=== PATIENT | female | born 1950 | race American Indian/Alaskan Native ===

== ENCOUNTER 2017-05-27 10:56 | Observation (INO) | payer MEDICARE ==
--- NOTE | 2017-05-23 10:18 | Anesthesia Consultation ---
Anesthesia Consult and Med Hx Date of service: 05/27/17 - Airway Anesthetic Teeth Evaluation: Good ROM Head & Neck: Adequate (MILDLY DECREASED) Mental/Hyoid Distance: Adequate Mallampati Class: Class II Intubation Access Assessment: Probably Good - Pulmonary Exam CTA: Yes - Cardiac Exam Cardiac Exam: RRR - Pre-Operative Health Status ASA Pre-Surgery Classification: ASA3 Proposed Anesthetic Plan: General - Pulmonary Hx Smoking: No Hx Asthma: No COPD: No Hx Pneumonia: No Hx Sleep Apnea: No (JAIMEE PRE SCREEN HIGH RISK) - Cardiovascular System Hx Hypertension: Yes (X 25 YRS) Hx Heart Attack/AMI: Yes (1996, heart cath negative in 1996) - Central Nervous System Hx Neuromuscular Disorder: Yes (NECK PAIN, RIGHT ARM NUMBNESS/TINGLING/WEAKNESS) Hx Seizures: No CVA: Yes ( 2013, CAUSED PROBLEMS TALKING, TREMORS) Hx Psychiatric Problems: Yes (ANXIETY, DEPRESSION) - Endocrine Hx Renal Disease: No (ARF IN 2007) Hx End Stage Renal Disease: No Hx Insulin Dependent Diabetes: Yes - Other Systems Hx Cancer: No Hx Obesity: No - Additional Comments Anesthesia Medical History Comments: CLEARANCE PENDING. PATIENT FORMER OR NURSE HERE AT [facility]
[~2017-05-27 10:56] MED LIST: BACITRACIN IR ONE; BACITRACIN ONE; GELFOAM TP ONE; MARCAINE 0.5% 0 ML INFILTRATI ONE; NACL 0.9% 1000 ML 1,000 ML IV SCH; NACL 0.9% 250ML 250 ML ONE; NACL 0.9% 250ML IV ONE; NACL 0.9% IR ONE; NACL P/F VIAL (10 ML) 10 ML ONE; NACL P/F VIAL (10 ML) IV ONE; NEURONTIN PO NR; PEPCID PO NR; SUBLIMAZE ONE; THROMBIN (BOVINE) TP ONE; VERSED IV NR; XYLOCAINE 1%/ EPI 1:100,000 INFILTRATI ONE
[2017-05-27] MEDS ORDERED: ULTIVA 4 MG in NACL 0.9% 80 ML IV ONE (12:00)
[2017-05-27] MEDS ORDERED: SUBLIMAZE ONE (12:09)
[2017-05-27] MEDS ORDERED: DIPRIVAN 10 MG/ML 1,000 MG/100 ML BOTTLE IV ONE (12:15)
[2017-05-27] MEDS ORDERED: XYLOCAINE MPF 2% ONE (12:25)
[2017-05-27] MEDS ORDERED: QUELICIN ONE (12:25)
[2017-05-27] MEDS ORDERED: ZEMURON IV ONE (12:26)
[2017-05-27] MEDS ORDERED: CALCIUM CHLORIDE IV ONE (12:38)
[2017-05-27] MEDS ORDERED: THROMBIN (BOVINE) TP ONE ×2 (12:38→14:25)
--- NOTE | 2017-05-27 12:43 | Anesthesia Day of Surgery ---
Anesthesia Day of Surgery - Day of Surgery Patient Examined: Yes Patient H&P Reviewed: Yes Patient is NPO: Yes Beta Blockers: Yes
[2017-05-27] MEDS ORDERED: ZOFRAN IV NR (13:00)
[2017-05-27] MEDS ORDERED: VANCOMYCIN/NS 1 GM/250 ML 1 GM/250 ML BAG IV NR (13:00)
[2017-05-27] MEDS ORDERED: TRANSDERM-SCOP TD NR (13:00)
[2017-05-27] MEDS ORDERED: NACL P/F VIAL (10 ML) IV ONE (13:41)
[2017-05-27] MEDS ORDERED: XYLOCAINE 1%/ EPI 1:100,000 INFILTRATI ONE (13:57)
[2017-05-27] MEDS ORDERED: NACL 0.9% 250ML IV ONE (14:08)
[2017-05-27] MEDS ORDERED: GELFOAM TP ONE (14:25)
[2017-05-27] MEDS ORDERED: BACITRACIN IR ONE (14:27)
[2017-05-27] MEDS ORDERED: NACL 0.9% IR ONE (14:27)
[2017-05-27] MEDS ORDERED: NACL 0.9% 100 ML ONE (14:52)
[2017-05-27] MEDS ORDERED: ROBINUL ONE (14:52)
[2017-05-27] MEDS ORDERED: DECADRON ONE (14:52)
[2017-05-27] MEDS ORDERED: ZOFRAN ONE (14:52)
[2017-05-27] MEDS ORDERED: NEO SYNEPHRINE ONE (14:52)
--- NOTE | 2017-05-27 15:27 | Post Anesthesia Evaluation ---
- Post Anesthesia Evaluation Patient Participated: Yes Airway Patent: Yes Stable Respiratory Function: Yes Nausea/Vomiting: No Temp > 96.8F: Yes Pain Manageable: Yes Adequeate Hydration: Yes Anesthesia Complications: No Block Receding Appropriately: Not Applicable Patient on Ventilator: No
[2017-05-27] MEDS ORDERED: TORADOL IV PRN (15:31)
[2017-05-27] MEDS ORDERED: ZOFRAN IV PRN ×2 (15:31→18:09)
--- NOTE | 2017-05-27 15:34 | Operative Report ---
Operative Report Operative Report: DATE OF PROCEDURE: 05/27/2017 PREOPERATIVE DIAGNOSIS: Cervical spondylosis with radiculopathy POSTOPERATIVE DIAGNOSIS: Same OPERATIVE PROCEDURE: 1. Anterior cervical arthrodesis C5 6 2. Interbody biomechanical graft placement C5 6 SURGEON: Alan Ferro MD CATHETER BUILDER: Luiza BRUNNER ANESTHESIA: General endotracheal anesthesia EBL: Minimal INDICATIONS FOR PROCEDURE: 66-year-old female with a chief complaint of persistent right upper extremity pain numbness and weakness. Symptoms has been present for over 6 months without response to physical therapy epidural injections or pain management. She presents with the right brachial radialis weakness and sensory changes in that distribution. FINDINGS: Large osteophyte at C5 6 with compression of exiting nerve root. PROCEDURE: The patient was brought to the operating room and placed on the operating table in the supine position. The patient underwent general endotracheal anesthesia without complication. After all lines were placed including monitoring the right neck was prepped and draped in a sterile fashion. After an appropriate time out was taken the area of intended incision was infiltrated with 1% lidocaine with epinephrine. The skin was opened using a 10 blade and carried down to the platysma. The platysma was divided sharply and the anterior cervical strap muscles were dissected bluntly. The anterior cervical spine was approached and a self-retaining retractor was placed under the longus colli muscles. The microscope was brought into the field and the discectomy was begun by making an incision in the disc space of C56. The anterior aspect of the C56 disc was removed using a combination of curettes and pituitary rongeurs. The posterior aspect of the disc and osteophyte was removed using a high-speed drill and Kerrison rongeurs. The posterior longitudinal ligament was incised and the thecal sac decompressed. Bilateral foraminotomies were performed and the neural foramen were checked to ensure no remaining disc or osteophyte was present. Hemostasis was obtained and the endplates were prepared for fusion by removing the remainder of the cartilaginous portion. Biomechanical grafts were then sized packed with bone growth stimulator. The graft then placed in the C5 6 interspace and secured using peek graft provided by R. Hemostasis was obtained and the platysma was reapproximated using 3-0 Vicryl and finally 4-0 Monocryl for the skin. The lap sponge and needle count was correct at the end of the procedure, the patient tolerated the procedure well and was taken to the recovery room extubated and in good condition.
[2017-05-27] MEDS ORDERED: TORADOL ONE (15:49)
[2017-05-27] MEDS: DILAUDID IV PRN ×5 (15:50→23:18)
[2017-05-27] MEDS ORDERED: DILAUDID ONE ×2 (15:53→16:44)
--- NOTE | 2017-05-27 16:08 | XRay Report ---
Lateral view of the cervical spine in the OR. History: Preop localization. Findings: A linear metallic localizer is seen at the C4-5 level.
--- NOTE | 2017-05-27 16:10 | XRay Report ---
AP and lateral view of the cervical spine. History: Postop evaluation. Findings: Anterior cervical fusion has been performed at C5-6. Position of the disc spacer and anterior components is normal. No radiographic signs of complications.
[2017-05-27] MEDS ORDERED: BENADRYL PO PRN (18:09)
[2017-05-27] MEDS ORDERED: D50W (25GM) Syringe IV PRN (18:09)
[2017-05-27] MEDS ORDERED: DESYREL PO PRN (18:09)
[2017-05-27] MEDS ORDERED: CATAPRES PO PRN (18:09)
[2017-05-27] MEDS ORDERED: FLEXERIL PO PRN (18:09)
[2017-05-27] MEDS ORDERED: NARCAN 0.4 MG/1 ML IV PRN (18:09)
[2017-05-27] MEDS ORDERED: XANAX PO PRN (18:09)
[2017-05-27] MEDS ORDERED: TYLENOL PO PRN (18:09)
[2017-05-27] MEDS ORDERED: CEPACOL X STRENGTH MM PRN (18:09)
[2017-05-27] MEDS ORDERED: MORPHINE IV PRN (18:09)
[2017-05-27] MEDS ORDERED: AMBIEN PO PRN (18:09)
[2017-05-27] MEDS ORDERED: REGLAN IV PRN (18:32)
[2017-05-27] MEDS ORDERED: NACL 0.9% 1000 ML 1,000 ML IV SCH (19:00)
[2017-05-27] MEDS ORDERED: LASIX PO SCH (20:00)
[2017-05-27] MEDS ORDERED: INSULIN LISPRO 16 UNIT SQ SCH (20:00)
[2017-05-27] MEDS ORDERED: VANCOMYCIN/NS 1 GM/250 ML 1 GM/250 ML BAG IV SCH (21:00)
[2017-05-27] MEDS ORDERED: LEVEMIR SUB-Q SCH (22:00)
[2017-05-27] MEDS ORDERED: NON-FORMULARY (Insulin Glargine,Hum.Rec.Anlog [Lantus Solostar] 20 UNIT) SQ SCH (22:00)
[2017-05-27] MEDS: COLACE PO SCH (22:53)
[2017-05-27] MEDS: PEPCID PO SCH (22:54)
[2017-05-27] MEDS: SENOKOT PO SCH (22:54)
[2017-05-27] MEDS: NOVOLOG SUB-Q SCH (23:00)
[2017-05-27] MEDS: APRESOLINE PO SCH (23:05)
[2017-05-28] MEDS: DILAUDID IV PRN (03:47)
--- NOTE | 2017-05-28 06:11 | Admit Criteria Form ---
Admission Criteria Documentation: AMBULATORY SURGERY EXCEPTION CRITERIA Ambulatory Surgery Exception Criteria ( Place 'X' for any and all applicable criteria): Surgery or procedure performed on ambulatory basis may require inpatient stay for[A] ANY ONE of the following(1)(2)(3)(4)(5)(6)(7)(8)(9): [X] I. A preoperative situation, condition, or finding that warrants inpatient stay as indicated by ANY ONE of the following: [] a) Inpatient care needed because of severity of a disease or condition rather than the surgery (eg, severe cardiac or respiratory disease, severe infection) (15) (16 ) (17) (18) [] b) Emergent procedure (eg, angioplasty for acute ischemia)(19) [] c) Complex surgical approach or situation as indicated by ANY ONE of the following(3): [] i) Open approach needed instead of usual endoscopic, transcatheter, or other less invasive procedure [] ii) Difficult approach because of previous operation [] iii) Airway monitoring required after open neck procedures(20)(21) [] iv) Large mass requiring unusually extensive dissection [] v) Additional complicating feature requiring inpatient care (eg, drain management)(22(23): [X] d) Major surgery in a pt with high anesthetic risk as indicated by ANY ONE of the following (2)(3)(5)(7)(8): [X] i) ASA risk class III or higher (severe systemic disease impairing function) [D] [] ii) Advanced age (eg, older than 85 years)(14)(24) [] iii) Symptomatic heart failure(25) [] iv) Symptomatic asthma or COPD(8)(21) [] v) Morbid obesity with hemodynamic or respiratory problems(20)( 21)(26)(27) [] vi) Obstructive sleep apnea(20)(21) [] vii) Former premature infants who are younger than 60 weeks [] viii) High risk for severe postoperative abnormalities (eg, severe postoperative hypocalcemia after parathyroidectomy for severe hyperparathyroidism)(27)( 28) [] ix) Unstable angina(25) [] e) Drug-related risk requiring inpatient stay as indicated by ANY ONE of the following(5)(10)(14)(32)(33) [] i) Procedure requires discontinuing drugs or other therapy (eg , antiarrhythmic medication, antiseizure medication), which necessitates inpatient observation or treatment.(18)(31) [] ii) Major surgery and high risk drug use as indicated by ANY ONE of the following: [] 1) Active abuse of cocaine or similar drug [] 2) Monoamine oxidase inhibitor use [] 3) Other drug identified as posing risk [] f) Inadequate outpatient care situation as indicated by ANY ONE of the following(5)(10)(14)(32)(33) [] i) Patient lives remote from medical facility and procedure has urgent complication potential, and temporary nearby residence cannot be arranged [] ii) Patient will have postprocedure incapacitation and inadequate assistance at home, or alternative level of care cannot be arranged. [] iii) Patient will have long general anesthesia or procedure side effect resolution time, and competent person to stay with patient on first postoperative night at home or alternative level of care cannot be arranged. []iv) Other inadequate outpatient situation that cannot be handled by other means [] II. A perioperative event, condition, or finding that warrants inpatient stay as indicated by ANY ONE of the following (1)(2)(3): [] a) Inadequate physiologic recovery: cardiovascular, respiratory, or hemodynamic status not normal or near preoperative baseline(18) [] b) Hemodynamic instability [] c) Patient not alert with near normal or baseline mental status [] d) Temperature not normal or as expected and not appropriate for outpatient treatment of condition [] e) Ambulatory or appropriate activity level status not yet achieved post procedure [E](34)(35)(36) [] f) Operative site not appropriate (eg, unexpected or excessive drainage or bleeding) [] g) Postoperative effects not resolved or adequately managed (eg, significant pain or vomiting not appropriate for outpatient or next level of care)(10)(12) [] h) Complicating features requiring inpatient care as indicated by ANY ONE of the following(37): [] i) Severe complications of procedure (eg, bowel injury, airway compromise, vascular injury,severe hemorrhage) [] ii) Extensive (eg, dissection far beyond usual scope of procedure ) or prolonged (eg, 120 minutes beyond usual) surgery needed requiring inpatient postoperative care [] iii) Conversion to an open or complex procedure that requires inpatient care (eg, open vs laparoscopic cholecystectomy, abdominal vs vaginal hysterectomy)(38) [] iv) Comorbid condition or test result identified during or post procedure that requires inpatient care (7) [] v) Malignant hyperthermia(30) [] vi) Other complicating feature requiring inpatient care(22)(23) Inpatient stay may be needed until ALL of the following are present (1)(2)(3)(4) (5)(6)(10)(14)(33)(40): []a) Physiologic recovery: cardiovascular, respiratory, and hemodynamic status normal or near preoperative baseline []b) Hemodynamic stability []c) Patient alert, with near normal or baseline mental status []d) Temperature appropriate: patient afebrile or temperature appropriate for outpt treatment of condition []e) Activity level appropriate: ambulatory or appropriate activity level post procedure []f) Operative site appropriate as indicated by ALL of the following: []i) Site dry or with expected drainage []ii) Any blood noted is as expected for procedure. []g) Postoperative effects resolved or managed as indicated by ALL of the following: []i) Pain management appropriate for outpatient (or next level of) care(10) []ii) Minimal nausea and vomiting: if present, successfully treated with oral medication(12) []iii) Headache, dizziness, or drowsiness (if present) are mild. []h) Voiding status acceptable as indicated by ANY ONE of the following: []i) Voiding spontaneously []ii) No voiding but instructions given for follow-up in 6 to 8 hours []iii) Urinary catheter in place, and instructions given for follow-up []i) Complicating features requiring inpatient care manageable at a lower level of care(37) []j) Comorbid conditions manageable at a lower level of care(37) The original [employer] content created by [employer] has been revised. The portions of the content which have been revised are identified through the use of italic text or in bold, and [facility] [employer] has neither reviewed nor approved the modified material. All other unmodified content is copyright [employer]. Please see references footnoted in the original [employer] edition 2016 Admission Criteria Met: Yes
--- NOTE | 2017-05-28 08:31 | Short Stay Summary ---
Short Stay Documentation Date of service: 05/28/17 - History H&P: obtained from office - Allergies and Medications Current Medications: Allergies codeine Allergy (Verified 05/30/13 01:38) Hives Penicillins Allergy (Verified 05/30/13 01:38) Hives Home Medications Medication Instructions Recorded Confirmed Last Taken Type ALPRAZolam [Xanax TAB] 0.5 mg PO TID PRN 05/30/13 05/16/17 05/26/17 History Atenolol [Tenormin] 50 mg PO DAILY 05/30/13 05/16/17 05/27/17 08:00 History Doxazosin Mesylate [Cardura] 2 mg PO DAILY 05/30/13 05/16/17 05/27/17 08:00 History Zolpidem [Ambien] 5 mg PO QHS PRN 05/30/13 05/16/17 05/26/17 History Sertraline [Zoloft] 75 mg PO QDAY #90 tablet 06/01/13 05/16/17 05/26/17 Rx Estradiol [Estrace] 2 mg PO DAILY 06/10/14 05/16/17 05/26/17 History Trazodone HCl [traZODone] 50 mg PO QHS PRN 06/10/14 05/16/17 05/26/17 History Atorvastatin Calcium [Lipitor] 20 mg PO QHS #30 06/13/14 05/16/17 05/26/17 Rx Furosemide [Lasix] 40 mg PO Q48H #30 06/13/14 05/16/17 05/26/17 Rx Insulin Glargine,Hum.rec.anlog 20 unit SQ QHS #3 06/13/14 05/16/17 05/26/17 Rx [Lantus Solostar] Aspirin [Adult Low Dose Aspirin EC] 81 mg PO DAILY 05/16/17 05/16/17 05/20/17 History Furosemide [Lasix TAB] 80 mg PO Q48HR 05/16/17 05/16/17 05/26/17 History Insulin Lispro [HumaLOG VIAL] 16 units SQ TID 05/16/17 05/16/17 05/26/17 History hydrALAZINE [Apresoline TAB] 10 mg PO BID 05/16/17 05/16/17 05/27/17 08:00 History Losartan [Cozaar] 50 mg PO QDAY 05/27/17 05/27/17 05/27/17 08:00 History Active Medications Acetaminophen (Tylenol) 650 mg PO Q6H PRN PRN Reason: Pain MILD(1-3)/Fever> 100.5/GRIFFITH Alprazolam (Xanax) 0.5 mg PO TID PRN PRN Reason: Agitation Last Admin: 05/27/17 20:26 Dose: 0.5 mg Atenolol (Tenormin) 50 mg PO DAILY [facility] Atorvastatin Calcium (Lipitor) 20 mg PO QHS [facility] Last Admin: 05/27/17 22:53 Dose: 20 mg Benzocaine/Menthol (Cepacol X Strength) 1 each MM Q1H PRN PRN Reason: Sore Throat Clonidine HCl (Catapres) 0.1 mg PO Q4H PRN PRN Reason: SBP>165 Cyclobenzaprine HCl (Flexeril) 10 mg PO Q8H PRN PRN Reason: Muscle Spasm Dextrose (D50w (25gm) Syringe) 50 ml IV PRN PRN PRN Reason: Hypoglycemia Diphenhydramine HCl (Benadryl) 25 mg PO Q6H PRN PRN Reason: Itching Docusate Sodium (Colace) 100 mg PO BID [facility] Last Admin: 05/27/17 22:53 Dose: 100 mg Doxazosin Mesylate (Cardura) 2 mg PO DAILY [facility] Estradiol (Estrace) 2 mg PO DAILY [facility] Famotidine (Pepcid) 20 mg PO BID [facility] Last Admin: 05/27/17 22:54 Dose: 20 mg Furosemide (Lasix) 40 mg PO Q48H [facility] Last Admin: 05/27/17 20:30 Dose: Not Given Furosemide (Lasix) 80 mg PO Q48HR [facility] Hydralazine HCl (Apresoline) 10 mg PO BID [facility] Last Admin: 05/27/17 23:05 Dose: 10 mg Hydromorphone HCl (Dilaudid) 0.5 mg IV Q10MIN PRN PRN Reason: Pain , Severe (7-10) Stop: 05/30/17 15:32 Last Admin: 05/27/17 16:55 Dose: 0.5 mg Hydromorphone HCl (Dilaudid) 0.5 mg IV Q3H PRN PRN Reason: Pain , Severe (7-10) Last Admin: 05/28/17 03:47 Dose: 0.5 mg Sodium Chloride (Nacl 0.9% 1000 Ml) 1,000 mls @ 75 mls/hr IV DIRECT [facility] Influenza Virus Vaccine Quadrival (Fluarix Quad [id number](36 Mos+)) 0.5 ml IM .ONCE ONE Stop: 05/28/17 12:01 Insulin Aspart (Novolog) 0 units SUB-Q ACHS [facility] PRN Reason: Protocol Last Admin: 05/27/17 23:00 Dose: 5 units Insulin Aspart (Novolog) 16 units SUB-Q TIDWM [facility] Insulin Detemir (Levemir) 20 units SUB-Q QHS [facility] Last Admin: 05/27/17 22:55 Dose: 20 units Losartan Potassium (Cozaar) 50 mg PO QDAY [facility] Metoclopramide HCl (Reglan) 10 mg IV Q6H PRN PRN Reason: Nausea And Vomiting Last Admin: 05/27/17 20:26 Dose: 10 mg Morphine Sulfate (Morphine) 4 mg IV Q4H PRN PRN Reason: Pain , Severe (7-10) Naloxone HCl (Narcan 0.4 Mg/1 Ml) 0.1 mg IV Q2MIN PRN PRN Reason: Res Rate </= 8 or 02 SAT < 92% Ondansetron HCl (Zofran) 4 mg IV Q8H PRN PRN Reason: Nausea And Vomiting Last Admin: 05/28/17 03:38 Dose: 4 mg Pneumococcal Polyvalent Vaccine (Pneumovax 23) 0.5 ml IM .ONCE ONE Stop: 05/28/17 12:01 Senna (Senokot) 8.6 mg PO BID [facility] Last Admin: 05/27/17 22:54 Dose: 8.6 mg Sertraline HCl (Zoloft) 75 mg PO QDAY [facility] Tramadol HCl (Ultram) 50 mg PO Q4H PRN PRN Reason: Pain, Moderate (4-6) Trazodone HCl (Desyrel) 50 mg PO QHS PRN PRN Reason: Sleep Zolpidem Tartrate (Ambien) 5 mg PO QHS PRN PRN Reason: Sleep - Hospital course Hospital course: Admitted, blood sugars high most likely secondary to insulin. Ambulated with physical therapy. - Disposition Condition at discharge: Good Disposition: [id number] HOME UNDER HOME [facility] Short Stay Discharge Plan Activity: advance as tolerated Weight Bearing Status: Weight Bear as Tolerated Diet: diabetic Wound: open to air Follow up with: PRIMARY CARE, [Primary Care Provider] - 7 Days Prescriptions: Cyclobenzaprine [Flexeril 10 MG TAB] 10 mg PO Q8H PRN #60 tablet PRN Reason: Muscle Spasm HYDROmorphone [Dilaudid] 1 mg PO Q4HR #20 tablet
[2017-05-28] MEDS: NOVOLOG SUB-Q SCH ×4 (08:45→11:51)
[2017-05-28] MEDS: ULTRAM PO PRN ×2 (08:47→13:39)
[2017-05-28] MEDS: SENOKOT PO SCH (09:06)
[2017-05-28] MEDS: APRESOLINE PO SCH (09:06)
[2017-05-28] MEDS: COLACE PO SCH (09:08)
[2017-05-28] MEDS: PEPCID PO SCH (09:08)
[2017-05-28] MEDS ORDERED: CARDURA PO SCH (10:00)
[2017-05-28] MEDS ORDERED: TENORMIN PO SCH (10:00)
[2017-05-28] MEDS ORDERED: ESTRACE PO SCH (10:00)
[2017-05-28] MEDS ORDERED: ZOLOFT PO SCH (10:00)
[2017-05-28] MEDS ORDERED: NON-FORMULARY (Doxazosin Mesylate [Cardura] 2 MG) PO SCH (10:00)
[2017-05-28] MEDS ORDERED: COZAAR PO SCH (10:00)
[2017-05-28] MEDS ORDERED: PNEUMOVAX 23 IM ONE (12:00)
[2017-05-28] MEDS ORDERED: Fluarix Quad 2017-2018(36 MOS+) IM ONE (12:00)
[2017-05-28 14:19] VITALS: BP 156/71
[2017-05-29] MEDS ORDERED: NON-FORMULARY (Furosemide [Lasix Tab] 80 MG) PO SCH (10:00)
[2017-05-29] MEDS ORDERED: LASIX PO SCH (10:00)
== END 2017-05-28 17:30 | disposition home health service (06) ==
LOC: OR 10:56 → MERGE 12:57 → 2B-SURG 12:57
PROVIDERS: ADMIT Neurological Surgery; ATTEND Neurological Surgery
DX: M47.22 Other spondylosis with radiculopathy, cervical region (principal); Z23 Encounter for immunization
CPT/HCPCS: 20931; 22551; 36415; 72020; 72040; 82565; 82962; 88304; 88311; 90471; 90472; 90686; 90732; 96365; 96372; 96375; 96376; 97161; A4649; A9270; C1713; G0378; G8978; G8979; G8980; J0330; J1100; J1170; J1885; J2250; J2370; J2405; J2704; J2765; J3010; J3370; J7030; J7050; J1815; J1818

== ENCOUNTER 2017-07-07 11:26 | Outpatient (CLI) | payer MEDICARE ==
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
== END 2017-07-07 11:27 | disposition home or self-care (01) ==
LOC: XRAY 11:26
PROVIDERS: ATTEND Physician Assistant
DX: M47.22 Other spondylosis with radiculopathy, cervical region (principal); M43.22 Fusion of spine, cervical region; I51.7 Cardiomegaly; I70.0 Atherosclerosis of aorta
CPT/HCPCS: 72040

== ENCOUNTER 2017-10-31 08:37 | Outpatient (CLI) | payer MEDICARE ==
[2017-10-31 10:00] LABS: Blood Urea Nitrogen 12 mg/dL (7-17)
--- NOTE | 2017-10-31 12:48 | Cat Scan Report ---
FINAL REPORT EXAM: CT ABDOMEN PELVIS WO CON HISTORY: LEFT LOWER QUADRANT ABD PAIN TECHNIQUE: CT examination of the ABDOMEN without IV contrast CT examination of the PELVIS without IV contrast PRIORS: None. FINDINGS: Slight linear scar versus atelectasis in left lower lobe. Surgically absent gallbladder. Normal noncontrast appearance of the liver, right adrenal, pancreas, and spleen. Normal caliber abdominal aorta with moderate calcified atherosclerotic plaque. Normal caliber IVC. Smoothly marginated nonspecific fatty density nodule in the left adrenal gland is most compatible with benign lipid rich adenoma. Average density-5 and minimum density-55. 1 mm nonobstructing right renal calculus. Otherwise normal-appearing kidneys and ureters. Faint hazy opacity and fat stranding is present in the central mesenteric adipose tissue. This finding is nonspecific and can be associated with a number of etiologies including scar, edema, or inflammation. No retroperitoneal adenopathy. No definite mesenteric mass. Normal-appearing stomach and duodenum. No small bowel distention in the abdomen and pelvis. No pelvic free fluid. Normal-appearing urinary bladder. Postoperative surgical changes in the anterior pelvis. Uterus not visible. No adnexal abnormality. Normal-appearing rectum. Slight descending and moderate sigmoid diverticulosis. Nonspecific moderate mural thickening in the sigmoid colon may be scar from prior diverticulitis. The differential includes current mild diverticulitis although there is no adjacent fat stranding or free fluid. Slight diverticulosis ascending and transverse colon. No gross ascites, free air, or colonic distention. Normal-appearing cecum and terminal ileum. Appendix not visible. No pericecal inflammation. IMPRESSION: Diverticulosis descending and sigmoid colon. Mural thickening and sigmoid colon may be scar from prior diverticulitis. The differential includes current mild diverticulitis without adjacent fat stranding or free fluid 1 mm nonobstructing right renal calculus Slight linear scar versus atelectasis in left lower lobe Fatty nodule in left adrenal gland most compatible with benign lipid rich adenoma Faint hazy opacity in the central mesentery may be scar, edema, or inflammation. No associated adenopathy
== END 2017-10-31 08:38 | disposition home or self-care (01) ==
LOC: CT 08:37
PROVIDERS: ATTEND Internal Medicine
DX: N20.0 Calculus of kidney (principal); K57.52 Diverticulitis of both small and large intestine without perforation or abscess without bleeding; E27.8 Other specified disorders of adrenal gland; I70.0 Atherosclerosis of aorta; Z90.49 Acquired absence of other specified parts of digestive tract
CPT/HCPCS: 36415; 74176; 82565; 84520